=== PATIENT | female | born 1950 | race Hispanic/Latino ===

== ENCOUNTER → 2019-10-03 | Outpatient (CLI) | payer OTHER ==
[~2019-10-03] MED LIST: AMLO5TAB9 PO; LISI1TAB28 PO; VITAD50000 PO
== END | disposition home or self-care (01) ==
LOC: OIH 08:13
PROVIDERS: ATTEND Neurological Surgery
DX: M43.26 Fusion of spine, lumbar region (principal)
CPT/HCPCS: 72100

== ENCOUNTER 2024-12-20 05:46 | Day surgery (SDC) | payer MEDICARE ==
--- NOTE | 2024-12-18 08:31 | EKG ---
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
[2024-12-18 08:40] LABS: BASOPHILS # (AUTO) 0.02 K/uL (0.00-0.20); BASOPHILS % (AUTO) 0.4 % (0.0-5.0); EOSINOPHILS # (AUTO) 0.07 K/uL (0.00-0.70); EOSINOPHILS % (AUTO) 1.4 % (0.0-8.0); HEMATOCRIT 39.8 % (36-48); IMMATURE GRANULOCYTE ABSOLUTE 0.01 K/uL (0-1); LYMPHOCYTES # (AUTO) 1.7 K/uL (1.0-4.8); LYMPHOCYTES % (AUTO) 34.1 % (21.0-51.0); MEAN CORPUSCULAR HEMOGLOBIN 29.5 pg (27.0-33.0); MEAN CORPUSCULAR HGB CONC 33.7 g/dL (32.0-36.0); MEAN CORPUSCULAR VOLUME 87.7 fL (79-99); MONOCYTES # (AUTO) 0.5 K/uL (0.1-1.0); MONOCYTES % (AUTO) 9.1 % (3.0-13.0); NEUTROPHILS # (AUTO) 2.8 K/uL (1.8-7.7); NEUTROPHILS % (AUTO) 54.8 % (40.0-77.0); PLATELET COUNT (AUTO) 269 K/uL (130-400); RED BLOOD CELL COUNT(AUTO) 4.54 MIL/uL (4.00-5.50); RED CELL DISTRIBUTION WIDTH 13.3 % (11.0-15.5); WHITE BLOOD COUNT (AUTO) 5.1 K/uL (4.8-10.8)
[2024-12-18 08:45] LABS: APPEARANCE,URINE CLEAR (CLEAR); BILIRUBIN,URINE NEGATIVE (NEGATIVE); COLOR,URINE LIGHT-YELLOW (YELLOW); GLUCOSE, URINE (UA) NEGATIVE (NEGATIVE); KETONES,URINE NEGATIVE (NEGATIVE); LEUKOCYTE ESTERASE ,URINE 75 Leu/uL (NEGATIVE); NITRATE,URINE NEGATIVE (NEGATIVE); OCCULT BLOOD,URINE NEGATIVE (NEGATIVE); PH,URINE 5.5 (5.0-8.0); PROTEIN,URINE NEGATIVE (NEGATIVE); UROBILINOGEN,URINE 0.2 mg/dL (0.2-1.0)
[2024-12-18 08:49] LABS: ADD UA MICROSCOPIC YES
[2024-12-18 08:51] LABS: MUCUS,URINE RARE LPF (None Seen); RBC,URINE 0-1 /HPF (0-1); SQUAMOUS EPITHELIAL CELL,UR RARE /HPF (0-2)
[2024-12-18 08:55] LABS: INR <= 0.93 (0.85-1.15); PROTHROMBIN TIME 9.6 SEC (9.6-11.6)
[2024-12-18 08:57] LABS: CREATININE 0.5 mg/dL (0.5-1.0); POTASSIUM 3.6 mmol/L (3.5-5.1)
[2024-12-18 08:58] VITALS: BP 151/73; PULSE 72; RESP 18; TEMP 97.4
[2024-12-18 09:01] LABS: B-TYPE NATRIURETIC PEPTIDE 16 pg/mL (0-100)
--- NOTE | 2024-12-18 12:27 | HMCIMG ---
CHEST 1VW HISTORY: Preop COMPARISON: None FINDINGS: A frontal projection of the chest was obtained. No acute pulmonary infiltrates is seen. Small granuloma is suspected in the right lower lung. The heart is borderline enlarged. Degenerative changes are seen. Aortic calcifications are seen. IMPRESSION: 1. No acute pulmonary infiltrate is seen.
[2024-12-20] VITALS (10 sets, daily range): BP systolic 126–170; BP diastolic 68–76; PULSE 63–81; RESP 12–18; TEMP 97.6–98.7
[~2024-12-20] VITALS: Ht 165.1 cm; Wt 76.5 kg
[~2024-12-20 05:46] MED LIST changes: -AMLO5TAB9 PO; +ASPI-1443 PO; +FLUT16H NASAL; -LISI1TAB28 PO; +SIMV5TAB58 PO; +TELM1TAB48 PO; -VITAD50000 PO; +[UNRECOGNIZED DRUG - REMARK] PO
[2024-12-20] MEDS: 0.9%NACL 1000ML 1,000 ML IV SCH (06:41)
[2024-12-20] MEDS ORDERED: LIDOCAINE HCL 400MG/20ML VIAL ONE (07:15)
[2024-12-20] MEDS ORDERED: HEParin-NS 1,000 UNIT/500 ML 1,000 ML IV ONE (07:15)
[2024-12-20] MEDS ORDERED: IOHEXOL 350 MG/ML 100ML INFUS..BTL IV ONE (07:15)
[2024-12-20] MEDS ORDERED: HEParin 10,000 UNIT/10ML (1,000 UNIT/ML) VIAL ONE (07:15)
[2024-12-20] MEDS ORDERED: NITROGLYCERIN 50MG VIAL ONE (07:16)
[2024-12-20] MEDS ORDERED: MIDAZOLAM HCL 1 MG/ML 2ML VIAL ONE ×2 (07:38→09:10)
[2024-12-20] MEDS ORDERED: FENTanyl CITRate PF 50 MCG/1 ML 2ML VIAL ONE (07:38)
[2024-12-20] MEDS ORDERED: HEParin-NS 1,000 UNIT/500 ML 500 ML IV ONE (08:39)
[2024-12-20] MEDS ORDERED: IOHEXOL-350 50ML VIAL IV ONE (09:07)
[2024-12-20] MEDS ORDERED: cloPIDOgrel 300MG TAB ONE (09:27)
[2024-12-20] MEDS ORDERED: ASPIRIN 325MG EC TAB PO ONE (09:27)
[2024-12-20] MEDS ORDERED: DEXTROSE 50%-WATER 50 ML DISP.SYRIN IV PRN (10:00)
[2024-12-20] MEDS ORDERED: GLUCAGON 1MG KIT 1 MG ML IM PRN (10:00)
[2024-12-20] MEDS ORDERED: 0.9%NACL 1000ML 1,000 ML IV SCH (10:00)
--- NOTE | 2024-12-20 10:09 | PRN ---
PROCEDURE NOTE Indications: Chest pain Abnormal coronary CTA (high-risk plaque with positive remodeling and spotty calcification in the LAD) done on 09/13/2024 HTN Low normal left ventricle systolic function (LVEF 50-55% by echocardiogram done on 08/09/2023) Symptomatic PVCs Procedures: LHC, coronary angiogram, PCI with balloon angioplasty, OCT assessment, and DANIEL placement in the mid LAD Introduction: After informed written consent was obtained, the patient was brought to the C atheterization Lab in the usual fasting state. Following sterile prep and drape, a time out was performed, then moderate sedation was administered, 1mg of Versed and 50mcg of Fentanyl, then 1% Lidocaine was infiltrated into the right femoral groin. Using a Modified Seldinger technique, a 6Fr Sheath was inserted into the right common femoral artery. While under fluoroscopic guidance, diagnostic coronary catheters were advanced over a wire into the central circulation where they were aspirated, flushed and placed to pressure monitoring, once the wire was removed. Coronary Angio: The left and right coronary arteries were engaged with appropriate catheters and angiography was performed under continuous pressure monitoring. Left Heart Catheterization: A JR4 catheter was inserted into the LV and the pressure was recorded, then the catheter was removed from the LV. Cardiac Findings: Right dominant system LM: Large caliber vessel with mild luminal irregularities. The vessel bifurcat es into the LAD and LCX. LAD: Medium caliber vessel with diffuse 80-90% stenosis in the mid LAD. 20% stenosis in the distal LAD. BRAD three blood flow distally. Diagonal 1: Small caliber vessel with mild luminal irregularities Diagonal 2: Small caliber vessel with mild luminal irregularities LCx: Medium caliber vessel with mild luminal irregularities. OM1: Medium caliber vessel with mild luminal irregularities OM2: Small caliber vessel with mild luminal irregularities RCA: Large caliber vessel with 20% stenosis in the mid to distal RCA RPDA: Medium caliber vessel with mild luminal irregularities. RPLV: Medium caliber vessel with mild luminal irregularities LVEDP: 4 mmHg Medications given: Versed 3mg, Fentanyl 100mcg, heparin 75 units/kg x1 dose, clopidogrel 600 mg x 1 dose, aspirin 325 mg x 1 dose, nitroglycerin 200mcg x 1 dose Coronary Intervention: Guide catheter: XB 3.5 Guidewire: 0.014 run-through guidewire After reviewing the above-mentioned findings the decision was made to intervene on the mid LAD. The XB 3.5 guide catheter and 0.014 run-through guidewire were advanced into the ostium of the left main. We then administered heparin 75 units/kg x1 dose, clopidogrel 600 mg x 1 dose, and aspirin 325 mg x 1 dose. We then advanced the 0.014 run-through guidewire across the areas stenosis and into the distal LAD. We then performed balloon angioplasty (2.0 x 20mm) in the mid LAD. We then performed OCT assessment of the mid LAD, which identified the lumen size and plaque morphology. We then performed successful DANIEL placement (Xience Skypoint 3.0 x 15 mm and 2.5 x 38 mm) in the mid LAD. The stents were post dilated using an NC 3.0 x 15 mm balloon achieving optimal results. We then repeated OCT of the mid LAD, which identified well expanded stents in the mid LAD. The guidewire and XB 3.5 guide catheter were then removed. The patient tolerated the procedure well and without issue. Complications: None Conscious Sedation Monitoring: Under my direct order and supervision, medication for moderate conscious sedation was administered by the nursing staff and the patients level of consciousness and physiological status was monitored by an independent trained nurse. Closure of Access Site: After the case completed the sheath was pulled and a 6Fr Angioseal was deployed in the right common femoral artery without complication. Conclusion: 1. 1V CAD, diffuse 80-90% stenosis in the mid LAD status post successful treat ment with balloon angioplasty and DANIEL placement (Xience Skypoint 3.0 x 15 mm and 2.5 x 38 mm) in the mid LAD. The stents were post dilated using an NC balloon achieving optimal results. 2. 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 Chest pain 4. Abnormal coronary CTA (high-risk plaque with positive remodeling and spotty calcification in the LAD) done on 09/13/2024 5. HTN 6. Low normal left ventricle systolic function (LVEF 50-55% by echocardiogram done on 08/09/2023) 7. Symptomatic PVCs Recommendation: 1. Continue goal-directed medical therapy 2. Start clopidogrel 75 mg daily. The patient will continue aspirin 81 mg daily. The patient will remain on DAPT for a minimum of six months, and optimally one year. 3. Groin precautions 4. 4 hours of bedrest 5. Start NS at 100 mL/hour x3 hours. 6. Okay to DC once bed rest is complete and the right groin is soft, and free of bruising, bleeding, and or hematoma formation. 7. No driving for the next 48 hours. 8. No heavy lifting or strenuous exercise for the next two weeks. 9. Please have the patient follow up with Dr. Rainey in 1-2 weeks. NORAH RAINEY MD Dec 20, 2024 10:09
== END 2024-12-20 14:00 | disposition home or self-care (01) ==
LOC: DAH 05:46
PROVIDERS: ATTEND Internal Medicine Cardiovascular Disease
DX: R93.1 Abnormal findings on diagnostic imaging of heart and coronary circulation (principal); I25.118 Atherosclerotic heart disease of native coronary artery with other forms of angina pectoris; I25.84 Coronary atherosclerosis due to calcified coronary lesion; I10 Essential (primary) hypertension; R07.9 Chest pain, unspecified; R00.2 Palpitations; I49.3 Ventricular premature depolarization; E78.5 Hyperlipidemia, unspecified; M19.90 Unspecified osteoarthritis, unspecified site; Z90.710 Acquired absence of both cervix and uterus; Z98.890 Other specified postprocedural states; Z88.1 Allergy status to other antibiotic agents; Z88.5 Allergy status to narcotic agent; Z88.8 Allergy status to other drugs, medicaments and biological substances; Z79.01 Long term (current) use of anticoagulants; Z79.899 Other long term (current) drug therapy
CPT/HCPCS: 36415; 71045; 80048; 81001; 83880; 85025; 85347; 85610; 85730; 87086; 92978; 93005; 93458; 96360; 96361; 99156; 99157; A4606; C1760; C1894; C9600; J1644; J2250; J3010; J3490; J7030; Q9967; A4215; A4216; A4221; A4222; A4223; A4335; A4554; A4663; C1725; C1769; C1874; C1887; Q9965